=== PATIENT | male | born 1985 | race Caucasian/White ===

== ENCOUNTER → 2018-07-24 09:39 | Outpatient (CLI) | payer SELFPAY ==
--- NOTE | 2018-07-24 09:55 | HTC.HP_ITS ---
- Problem List (1) Hemophilia B in male Status: Chronic Subjective Date of Service:: 07/24/18 Chief Complaint: Hemophilia annual follow-up History of Present Illness: Hemophilia annual follow-up Used factor replacement on 2 or 3 occasions in the past year, prophylactic following minor injuries. Last seen the dentist 1 year plus or minus Health History: Past Medical History Past Medical History: Bleeding disorder Family History Paternal Past Medical History: Hypertension Past Medical History (Last Updated 07/24/18 @ 09:53 by Gina Chew) Hemophilia B (Acute) [place] teeth extracted (Acute) Allergies/Adverse Reactions: Allergy/AdvReac Type Severity Reaction Status Date / Time aspirin AdvReac Severe BLEEDING Verified 03/14/17 12:11 Risk Factors Social History Smoking Status Never smoker Tobacco Risk Data: Tobacco Risk Smoking Status Never smoker Type of tobacco: Smokeless tobacco usage: Items/Day: Year started: Years used: Counseled to quit/cut down: Reason for no counseling performed: Reason for no pharmacotherapy: Tobacco use comments: Passive smoke exposure: Substance Risk Drug use: Caffeine use [drinks/day]: Alcohol use: Type of alcohol: Drinks per day: Has patient felt the need to cut down: Has the patient been annoyed by complaints: Has the patient felt guilty about drinking: Has the patient needed an eye operations engineer in the mornings: Comments: Review of Systems Constitutional:: Denies: Fever, Sweats, Weight loss, Appetite change, Chills Cardiovascular:: Denies: Chest pain, Palpitations, Dyspnea on exertion, Orthopnea, PND, Shortness of breath Respiratory: Denies: Cough, Hemoptysis, Shortness of Breath, Wheezing Gastrointestinal:: Denies: Abdominal pain, Nausea, Vomiting, Diarrhea, Constipation, Hematochezia Genitourinary: Denies: Dysuria, Hematuria, 15, Flank pain Musculoskeletal:: Denies: Back pain, Myalgia, Arthralgia Skin: Denies: Rash, Skin Changes, Wounds Neurological:: Denies: Headache, Dizziness, Visual changes, Tinnitus, Hearing loss Psychiatric: Denies: Anxiety, Depression, Homicidal Ideations, Suicidal Ideati ons - Physical Exam General: Alert, Oriented x3, No apparent distress HEENT: Atraumatic, PERRLA, EOMI, Normocephalic Oropharynx:: Dry mucosa Neck:: Supple, Trachea midline. Negative for: JVD, bilateral Cardiac:: Regular rate, Regular rhythm, Normal S1, Normal S2. Negative for: Murmur Lungs: Clear to auscultation, Excusion symmetrical. Negative for: Rhonchi, Wheezes Abdomen:: Soft, Non-tender, Non-distended. Negative for: Hepatosplenomegaly Extremities:: Negative for: Cyanosis, Edema Neurological: Neuro grossly intact Skin:: Negative for: Lesions, Rash, Petechiae, Ecchymosis Psychiatric:: Appropriate affect, Euthymic Lymphatics:: Negative for: Cervical lymphadenopathy, Supraclavicular lymphadenopathy, Axillary lymphadenopathy Assessment and Plan Hemophilia annual screening visit. Reviewed: - On-demand therapy. - Appropriate oral hygiene and regular dental care is essential. - An appropriate exercise regimen encouraged for maintenance of a healthy weight, cardiovascular risk reduction, and positive effects on strength, flexibility, balance, joint stabilization, bone density, socialization, and psychological health. - Medicines that increase the risk of bleeding should be avoided namely anticoagulants, aspirin, and other nonsteroidal anti-inflammatory drugs (NSAIDs). - Herbal remedies and nrmf-viu-yantsmo supplements such as fish oil, may increase bleeding risk. - Pain can be treated with local measures (eg, cold packs, immobilization, splinting), and acetaminophen. - Cardiovascular disease prevention : focus on diet, exercise, smoking avoidance, and control of hypertension and hypercholesterolemia. - Planning for invasive procedures and elective surgery. Patient was also evaluated by the Hemophilia multidisciplinary team on site and Dr Bee via video conferencing. Primary Care Provider: No Primary Care Phys Referring Provider: Aravind Bee MD
[2018-07-24 09:56] VITALS: BP 116/74; PULSE 62; RESP 16; TEMP 36.7; O2SAT 97; BMI 22.5
--- OUTSIDE RECORDS SUMMARY | 2018-09-08 23:33 | XMS RPT_ITS ---
:1985 Author Organization [facility] Care Team Providers Name Role Phone Emily Hwang Attending Unavailable Cristal, Aravind Referring Unavailable Primay Care Physicia, No Primary Care Unavailable Emily Hwang Attending Unavailable Kraut, Aravind Referring Unavailable Primay Care Physicia, No Primary Care Unavailable Emily Hwang Consulting Unavailable PROBLEMS PROBLEMS No Problem Records FoundPROCEDURES PROCEDURES No Procedure Records FoundRESULTS RESULTS HTC: OFFICE NOTE Observed: 07/24/2018 Status: F Source: [place] 10:41 AM [facility] REPOSITORY [facility] Medical Records Department [address] [place] [id number] C: Office Note 07/24/18 0954 MR#: [id number] Acct: [id number] Name: RENATA AZEVEDO Rep #: [id number] : 1985 32 From: Emily Hwang MD PCP: Care Physician, No Primary Status: REG CLI Y Location: [facility] - Problem List (1) Hemophilia B in male Status: Chronic Subjective Date of Service:: 07/24/18 Chief Complaint: Hemophilia annual follow-up History of Present Illness: Hemophilia annual follow-up Used factor replacement on 2 or 3 occasions in the past year, prophylactic following minor injuries. Last seen the dentist 1 year plus or minus Health History: Past Medical History Past Medical History: Bleeding disorder Family History Paternal Past Medical History: Hypertension Past Medical History (Last Updated 07/24/18 @ 09:53 by Gina Chew) Hemophilia B (Acute) [place] teeth extracted (Acute) Allergies/Adverse Reactions: Allergy/AdvReac Type Severity Reaction Status Date / Time aspirin AdvReac Severe BLEEDING Verified 03/14/17 12:11 Risk Factors Social History Smoking Status Never smoker Tobacco Risk Data: Tobacco Risk Smoking Status Never smoker Type of tobacco: Smokeless tobacco usage: Items/Day: Year started: Years used: Counseled to quit/cut down: Reason for no counseling performed: Reason for no pharmacotherapy: Tobacco use comments: Passive smoke exposure: Substance Risk Drug use: Caffeine use [drinks/day]: Alcohol use: Type of alcohol: Drinks per day: Has patient felt the need to cut down: Has the patient been annoyed by complaints: Has the patient felt guilty about drinking: Has the patient needed an eye shot blast equipment operator in the mornings: Comments: Review of Systems Constitutional:: Denies: Fever, Sweats, Weight loss, Appetite change, Chills Cardiovascular:: Denies: Chest pain, Palpitations, Dyspnea on exertion, Orthopnea, PND, Shortness of breath Respiratory: Denies: Cough, Hemoptysis, Shortness of Breath, Wheezing Gastrointestinal:: Denies: Abdominal pain, Nausea, Vomiting, Diarrhea, Constipation, Hematochezia Genitourinary: Denies: Dysuria, Hematuria, 15, Flank pain Musculoskeletal:: Denies: Back pain, Myalgia, Arthralgia Skin: Denies: Rash, Skin Changes, Wounds Neurological:: Denies: Headache, Dizziness, Visual changes, Tinnitus, Hearing loss Psychiatric: Denies: Anxiety, Depression, Homicidal Ideations, Suicidal Ideations - Physical Exam General: Alert, Oriented x3, No apparent distress HEENT: Atraumatic, PERRLA, EOMI, Normocephalic Oropharynx:: Dry mucosa Neck:: Supple, Trachea midline. Negative for: JVD, bilateral Cardiac:: Regular rate, Regular rhythm, Normal S1, Normal S2. Negative for: Murmur Lungs: Clear to auscultation, Excusion symmetrical. Negative for: Rhonchi, Wheezes Abdomen:: Soft, Non-tender, Non-distended. Negative for: Hepatosplenomegaly Extremities:: Negative for: Cyanosis, Edema Neurological: Neuro grossly intact Skin:: Negative for: Lesions, Rash, Petechiae, Ecchymosis Psychiatric:: Appropriate affect, Euthymic Lymphatics:: Negative for: Cervical lymphadenopathy, Supraclavicular lymphadenopathy, Axillary lymphadenopathy Assessment and Plan Hemophilia annual screening visit. Reviewed: - On-demand therapy. - Appropriate oral hygiene and regular dental care is essential. - An appropriate exercise regimen encouraged for maintenance of a healthy weight, cardiovascular risk reduction, and positive effects on strength, flexibility, balance, joint stabilization, bone density, socialization, and psychological health. - Medicines that increase the risk of bleeding should be avoided namely anticoagulants, aspirin, and other nonsteroidal anti-inflammatory drugs (NSAIDs). - Herbal remedies and yuss-htu-tjosdyf supplements such as fish oil, may increase bleeding risk. - Pain can be treated with local measures (eg, cold packs, immobilization, splinting), and acetaminophen. - Cardiovascular disease prevention : focus on diet, exercise, smoking avoidance, and control of hypertension and hypercholesterolemia. - Planning for invasive procedures and elective surgery. Patient was also evaluated by the Hemophilia multidisciplinary team on site and Dr Bee via video conferencing. Primary Care Provider: No Primary Care Phys Referring Provider: Aravind Bee MD 07/24/18 1041 <Electronically signed by Emily Hwang MD> Date Emily Hwang MD Cosigner Signature (if applicable): Date CC: Signed ALLERGIES ALLERGIES DATE TYPE / CODE NAME / CODE REACTION SEVERITY SOURCE 03/14/2017 Drug aspirin/F006 bleeding [facility] Allergy/4160 [id number]([facility] 34974(SNOMED M) Repository CT) ENCOUNTERS ENCOUNTERS ADMIT/DISCHARGE ACCOUNT ADMITTING ENCOUNTER LOCATION SOURCE NUMBER CLASS 07/24/2018 [id number] Ambulatory BMSBuilding:Alivia Epperson 3 [place].CF.[facility] Repository 07/24/2018 [id number] Ambulatory Zeenat Godwinoster [facility] ing:[facility] Repository PAYERS PAYERS ENCOUNTER GUARANTOR PAYER SUBSCRIBER SOURCE 07/24/2018 RENATA LINARES Primary NOT GIVENUNK Zeenat [id number] Insurance:SELF PAY [address] [id number]: [phone] Number: Effective Repository [phone] () Date:2018-07-24 07/24/2018 RENATA LINARES Primary NOT GIVENKAPIL [id number] TR Insurance:SELF PAY [address] [phone]: [phone] Number: Effective Repository [phone] () Date:2017-12-16
== END ==
PROVIDERS: Visit Provider Internal Medicine Hematology & Oncology
DX: D67 Hereditary factor IX deficiency (principal)